=== PATIENT | male | born 1990 | race Caucasian/White ===

== ENCOUNTER 2022-02-22 16:39 | Emergency (ER) | payer MEDICAID, SELFPAY ==
[2022-02-22 16:44] VITALS: BP 151/91; PULSE 58; RESP 18; TEMP 36.9; O2SAT 98
--- NOTE | 2022-02-22 17:04 | ED.GENADUL_ITS ---
Discharge Plan Disposition Patient Disposition: Home Condition: Stable Discharge Details Clinical Impression: Abscess, dental Primary Care Provider: None,None ED Provider: Tian Villalba Home Meds and New Rx's Prescriptions: New amoxicillin 500 mg tablet 500 mg PO BID Qty: 20 0RF Discharge Instructions Instructions: Dental Abscess (ED) Additional Instructions: follow up with your dentist as soon as possible if you feel more ill, have severe worsening pain or difficulty swallowing liquids return to the emergency department Medical Decision Making 31 yo male with no chronic medical problems who comes in with 6 days of right upper molar pain. He states he starte to have swelling around the area last night. He denies fevers, chills, difficulty swallowing or breathing. HE arrives stable speaking clearly in full sentences, no respiratory distress and swallowing normally. He has an eroded right upper anterior molar with mild swelling of the gums, no visible drainable abscess. Normal posterior pharynx, midline uvula, no submandibular swelling or restricted neck movements. Suspect dental abscess, will start on amoxicillin and have him f/u with his dentist, he has no findings to suggest travis's or more serious pathology. Return precautions given Differential Diagnosis Differential Diagnosis: dental abscess, pulpitis HPI General Mode of arrival: ambulatory . Date/Time Provider Initiated Documentation: 02/22/22 16:59 . Limitations to Documentation: no limitations . Information obtained by: patient . History of Present Illness 31 year old M presents to the emergency department with the chief complaint of right upper molar pain, described as moderate, Quality is described as aching, Patient started experiencing this day(s) (6) and it has been constant. No relieving factors improve symptom(s), No exacerbating factors reported . Patient notes no other symptoms.. Patient did receive the following treatments prior to arrival, none Related Data Home Medications Medication Instructions Recorded Confirmed amoxicillin 500 mg tablet 500 mg PO BID #20 tabs 02/22/22 Previous Rx's Medication Instructions Recorded amoxicillin 500 mg tablet 500 mg PO BID #20 tabs 02/22/22 Allergies Allergy/AdvReac Type Severity Reaction Status Date / Time No Known Allergies Allergy Unverified 02/22/22 16:47 General Stated Complaint: DentalOral CANDELARIO: 4 Review of Systems All systems reviewed & are unremarkable except as noted in HPI and below Constitutional Constitutional: Denies chills, Denies fever(s) and Denies weakness Cardiovascular Cardiovascular: Denies chest pain and Denies dyspnea Respiratory Respiratory: Denies cough and Denies dyspnea Gastrointestinal Gastrointestinal: Denies abdominal pain, Denies nausea and Denies vomiting Integumentary/Breasts Skin/Breast: Denies rash Neurologic Neurologic: Denies weakness PFSH All Active Problems (Updated 02/22/22 @ 17:11 by Tian Villalba MD) Abscess, dental (Acute) Social History Smoking/Tobacco Use Status: Current every day Tobacco Type: cigarettes Smoking risk assessment performed?: Yes Alcohol Intake: former Drug use: Daily Substance use type: marijuana Do you feel safe at home: Yes Do you feel safe in your relationship?: Yes Exam Const General: no acute distress Orientation: alert HENMT Head: normal to inspection Ears: external ears normal General nose exam: external nose normal Mouth: moist mucous membranes Eyes General: appearance normal, both eyes and all related structures Neck Neck: normal visual inspection Resp Effort & Inspection: normal respiratory effort and able to speak in complete sentences Cardio Rate: regular rate Skin General skin exam: no rashes or lesions noted Neuro General: patient alert and patient oriented x3 Extrem General: normal to inspection Psych Mental Status: mental status grossly normal Course Vital Signs Vital signs: Vital Signs Temperature 36.9 C 02/22/22 16:44 Pulse 58 L 02/22/22 16:44 Respiratory Rate 18 02/22/22 16:44 Blood Pressure 151/91 H 02/22/22 16:44 Pulse Oximetry 98 02/22/22 16:44 Temperature 36.9 C 02/22/22 16:44 Temperature Source Temporal Artery Scan 02/22/22 16:44 Pulse 58 L 02/22/22 16:44 Respiratory Rate 18 02/22/22 16:44 Respiratory Effort Non-Labored 02/22/22 16:48 Blood Pressure 151/91 H 02/22/22 16:44 Blood Pressure Position Sitting 02/22/22 16:44 Pulse Oximetry 98 02/22/22 16:44 Oxygen Delivery Method Room Air 02/22/22 16:44 Oxygen Flow Rate 0 02/22/22 16:44
[2022-02-22] MEDS: Amoxicillin 500 MG CAP PO (17:08)
== END 2022-02-22 17:16 | disposition home or self-care (01) ==
PROVIDERS: Emergency Provider Emergency Medicine
DX: K04.7 Periapical abscess without sinus (principal)
CPT/HCPCS: 99283; 99284

== ENCOUNTER 2022-04-27 10:27 | Emergency (ER) | payer MEDICAID, SELFPAY ==
[2022-04-27 10:29] VITALS: BP 124/95; PULSE 80; RESP 17; TEMP 36.7; O2SAT 98
--- NOTE | 2022-04-27 10:51 | W.ED.GENAD ---
Discharge Plan Disposition Patient Disposition: Home Condition: Stable Discharge Details Clinical Impression: Infected dental caries Primary Care Provider: None,None ED Provider: Erich Juares Home Meds and New Rx's Prescriptions: Continued amoxicillin 500 mg tablet 500 mg PO BID Qty: 14 0RF Discharge Instructions Instructions: Dental Caries (ED) Additional Instructions: It is very important that you take antibiotics as prescribed until they are fully gone. Do not save antibiotics as this can lead to antibiotic resistance. You will need to follow-up with dental provider for definitive care of your dental complaint. If you develop any new or significant worsening of symptoms feel free to return the emergency department for reassessment. Discharge Data Discharge Date/Time-TO BE ENTERED AT DEPARTURE: 04/27/22 11:05 Medical Decision Making Patient presenting to the urgency department for chief complaint of dental pain and need of further antibiotics. Patient does state that he seeds hard with dental and has a appointment tomorrow but office instructed him that he should take antibiotics due to concern of an abscessed tooth with need of extraction. Patient does state that he had some amoxicillin leftover that he had taken for a couple days but now is run out. Patient denies all other symptoms. Exam consistent with partially fractured tooth #3 and mild erythema at the base of the gumline consistent with possible early infection. no signs of deep neck space infection ( Retropharyngeal abscess, Cole's angina, Parapharyngeal space infection, Peritonsillar Abscess ([employer])) or Epiglottitis. Pt non toxic and stable. Patient placed upon Abx and explained definitive dental care was needed and he should keep his appointment. After discussion of diagnosis and plan of care patient has no further needs, questions, or concerns and states clear understanding to return to the emergency department for any worsening symptoms. This documentation was generated using [employer] dictation system, please disregard any oddities of phrase or misspellings. HPI General Mode of arrival: ambulatory. Date/Time Provider Initiated Documentation: 04/27/22 10:43. Limitations to Documentation: no limitations. Information obtained by: patient and RN notes reviewed. History of Present Illness 31 year old M presents to the emergency department with the chief complaint of dental pain , described as moderate, Quality is described as aching, and is localized to the mouth. Patient reports no radiation. Patient started experiencing this week(s) (2) and it has been constant. No relieving factors improve symptom(s), No exacerbating factors reported . Patient notes no other symptoms.. Patient did receive the following treatments prior to arrival, NSAID and other (Started amoxicillin) Related Data Home Medications Medication Instructions Recorded Confirmed amoxicillin 500 mg tablet 500 mg PO BID #14 tabs 04/27/22 Previous Rx's Medication Instructions Recorded amoxicillin 500 mg tablet 500 mg PO BID #14 tabs 04/27/22 Allergies Allergy/AdvReac Type Severity Reaction Status Date / Time No Known Allergies Allergy Unverified 04/27/22 10:32 General Stated Complaint: DentalOral CANDELARIO: 4 Review of Systems Constitutional Constitutional: Denies chills and Denies fever(s) ENT Ears, Nose, Mouth, and Throat: Reports as per HPI, Denies change in voice, Reports dental pain, Denies dysphagia, Denies throat swelling and Denies tongue swelling Cardiovascular Cardiovascular: Denies chest pain and Denies dyspnea Respiratory Respiratory: Denies dyspnea, Denies stridor and Denies wheezing Gastrointestinal Gastrointestinal: Denies abdominal pain, Denies dysphagia, Denies nausea and Denies vomiting Integumentary/Breasts Skin/Breast: Denies rash Allergic/Immunologic Allergic/Immunologic: Denies throat swelling, Denies tongue swelling and Denies wheezing PFSH All Active Problems (Updated 04/27/22 @ 10:55 by Erich Juares NP) Infected dental caries (Acute) Social History Smoking/Tobacco Use Status: Current every day Tobacco Type: cigarettes Smoking risk assessment performed?: Yes Alcohol Intake: former Drug use: Daily Substance use type: marijuana Do you feel safe at home: Yes Do you feel safe in your relationship?: Yes Exam Const General: cooperative Orientation: alert, awake and oriented x3 Limitations: mental status not altered [facility] Head: normal to inspection, normocephalic and atraumatic Ears: hearing grossly normal bilaterally, normal mastoids bilaterally and no periauricular adenopathy General nose exam: external nose normal Mouth: oropharynx normal, no drooling, no muffled voice, normal tongue and no trismus Teeth and gingiva: caries, poor dentition and other (Partially fractured tooth #3 erythema surrounding the base of the tooth) Throat: posterior oropharynx normal, tonsils normal and uvula midline Eyes General: appearance normal, both eyes and all related structures Pupils: PERRL Neck Neck: normal visual inspection, full ROM, no lymphadenopathy, no meningeal signs, trachea midline, supple, no anterior neck swelling and no midline deformity Resp Effort & Inspection: normal respiratory effort and able to speak in complete sentences Course Vital Signs Vital signs: Vital Signs Temperature 36.7 C 04/27/22 10:29 Pulse 80 04/27/22 10:29 Respiratory Rate 17 04/27/22 10:29 Blood Pressure 124/95 H 04/27/22 10:29 Pulse Oximetry 98 04/27/22 10:29 Temperature 36.7 C 04/27/22 10:29 Temperature Source Oral 04/27/22 10:29 Pulse 80 04/27/22 10:29 Respiratory Rate 17 04/27/22 10:29 Respiratory Effort Normal 04/27/22 10:31 Blood Pressure 124/95 H 04/27/22 10:29 Blood Pressure Position Sitting 04/27/22 10:29 Pulse Oximetry 98 04/27/22 10:29 Oxygen Delivery Method Room Air 04/27/22 10:29 Oxygen Flow Rate 0 04/27/22 10:29 Pain Level 9 04/27/22 10:31
== END 2022-04-27 11:05 | disposition home or self-care (01) ==
PROVIDERS: Emergency Provider Nurse Practitioner Family
DX: K04.7 Periapical abscess without sinus (principal)
CPT/HCPCS: 99283